=== PATIENT | male | born 1960 | race Caucasian/White ===

== ENCOUNTER → 2021-02-13 07:53 | Outpatient (REF) | payer OTHER, SELFPAY ==
--- NOTE | 2021-02-13 08:10 | ECG_ITS ---
Hook-up date: 2021-02-13 09:18:00 Duration: 47:59:00 Test Indications: ABNORMAL EKG Medications: 734425 QRS complexes 65 Ventricular ectopics which represent <1 % of total QRS comp. 971 Supraventricular ectopics which represent <1 % of total QRS comp. * Paced QRS complexs which represent % of total QRS comp. VENTRICULAR ECTOPY 65 Isolated 0 Bigeminal Cycles 0 Couplets 0 Runs 0 Beats in Runs * Beats LONGEST at * BPM at :: -- * Beats FASTEST at * BPM at :: -- SUPRAVENTRICULAR ECTOPY 951 Isolated 2 Couplets 4 Runs 16 Beats in Runs 7 Beats LONGEST at 119 BPM at 10:26:03 2021-02-13 3 Beats FASTEST at 129 BPM at 05:26:53 2021-02-14 HEART RATES 56 MIN at 03:39:56 2021-02-14 83 AVG 115 MAX at 11:06:17 2021-02-13 LONGEST RR 1.2640 secs at 05:00:30 2021-02-14 S-T LEVELS Channel 1 - 128 mm at 09:18:00 2021-02-13 - 128 mm at 09:18:00 2021-02-13 Channel 2 - 128 mm at 09:18:00 2021-02-13 - 128 mm at 09:18:00 2021-02-13 Channel 3 - 128 mm at 02:83:71 -- - 128 mm at 02:83:71 Underlying rhythm is sinus; Average ventricular rate 83/min; range 56-115/min; Occasional Premature atrial complexes (<1%); mostly isolated, few very brief runs; Rare Premature ventricular complexes ; Patient did not report any symptoms in the diary Referred By: Isiah Liu Overread By: VIKTORIA ROWLEY
--- NOTE | 2021-02-13 08:10 | CA_ITS ---
Transthoracic Echocardiogram Patient (Last, First, Middle): Jonah Lanier, Gender: Male Date of : 1960 Age: 61 Procedure Date: 02/13/2021 Procedure Type: Transthoracic Echocardiogram Location: OP Height: 193.04 cm Weight: 120.2 kg BSA: 2.50 m2 Heart Rate: bpm BP: 154 / 84 mmHg It Systems Analyst: [email or web address] Referring MD: Isiah Liu [facility] Symptoms: I10 - Essential (primary) hypertension Study Quality: Fair ECG Rhythm: Sinus Conclusions: - The left ventricular systolic function is normal. The visually estimated ejection fraction is between 60-65%. - No obvious valvular pathology seen on this study. Findings Left Ventricle Normal left ventricular cavity size. There is normal left ventricular wall thickness. The left ventricular systolic function is normal. The visually estimated ejection fraction is between 60-65%. There is no evidence of regional wall motion abnormalities. Diastolic function is normal for age. Right Ventricle Normal right ventricular cavity size and systolic function. Atria Both atria are normal in size. Aortic Valve There is a normal trileaflet aortic valve. There is no aortic valve stenosis. There is no aortic valve regurgitation. Mitral Valve The mitral valve appears normal. There is no mitral valve regurgitation. There is no mitral valve stenosis. Pulmonic Valve The pulmonic valve was not well visualized. Tricuspid Valve Normal tricuspid valve structure. There is trace tricuspid valve regurgitation. The pulmonary artery systolic pressure is normal. Great Vessels The asc aorta is normal in size. Venous The inferior vena cava is normal in size and collapses greater than 50% with inspiration. Pericardium/Pleural There is no evidence of pericardial effusion. Prior Study Comparison No prior study available for comparison. Recommendations, Care & Conclusions No obvious valvular pathology seen on this study. Measurements 2D Linear Measurements IVSd: 1.10 0.6-0.9/0.6-1.0 cm LVIDd: 5.20 3.9-5.3/4.2-5.9 cm LVIDd Index: 2.08 2.4-3.2/2.2-3.1 cm/m2 LVIDs: 3.43 2.0-3.6 cm LVPWd: 0.96 0.7-1.1 cm Ao Root: 3.20 2.1-3.5 cm LA Diam: 3.70 2.7-3.8/3.0-4.0 cm LAIDs Index: 1.48 1.5-2.3 cm/m2 LV Mass: 251.40 67-162/88-224 g LV Mass Index: 100.56 43-95/49-115 g/m2 LVOT Diam: 2.30 3.0+(-)1.3 cm 2D Systolic Function EF 4C: 60.50 >55% EF 2C: 55.50 >55% EF BiP: 57.50 >55% Mitral Valve MV Pk E: 0.84 MV PK A: 0.80 MV Decel Time: 238.00 E/A: 1.10 E'Lateral: 9.68 E'Medial: 9.36 E/E' Med: 9.00 E/E' Lat: 8.70 PHT: 70.00 MVA PHT: 3.14 Decel Kershaw: 3.53 Aortic Valve AoV Pk Gregorio: 1.46 AoV Mn Gregorio: 1.00 AoV VTI: 0.27 AoV Pk Grad: 9.00 Aov Mn Grad: 4.00 LIYAH Cont.VTI: 3.45 LVOT LVOT Pk Gregorio: 1.13 LVOT Mn Gregorio: 0.82 LVOT VTI: 0.23 LVOT Pk Grad: 5.00 LVOT Mn Grad: 3.00 LVOT Diam: 2.30 LVOT Area: 4.15 Diastolic Function MV Pk E: 0.84 MV Pk A: 0.80 E/A: 1.10 E'Medial: 9.36 E/E' Med: 9.00 E' Laterial: 9.68 E/E' Lat: 8.70 Right Ventricle TAPSE (mm): 2.07 Tricuspid Valve TR Pk Gregorio: 2.02 TR Pk Grad: 16.00 RA Press: 8.00 RVSP: 24.00 Great Vessels Aorta Ao Root-2D: 3.20 2.0-3.7 cm Ao Asc: 3.30 2.1-3.4 cm Ao Arch: 3.20 Updated in Other Vendor System with Status of Final Luis Felipe Ellis MD electronically signed on 02/15/2021 12:41:15 PM with status of Final
[2021-02-13 10:06] LABS: Glucose Urine UA NEG (NEG); Leukocyte Esterase Urine NEG (NEG); Nitrite Urine NEG (NEG); Specific Gravity - Urine 1.015 (1.005-1.025); Urine Blood NEG (NEG); Urine Ketones NEG (NEG); Urine Protein NEG (NEG-TRACE)
[2021-02-13 10:13] LABS: Appearance Urine CLEAR; Color Urine YELLOW
[2021-02-13 10:50] LABS: B Type Natriuretic Peptide 33 pg/mL (<100)
[2021-02-13 11:01] LABS: Creatinine Urine 132.52 mg/dL; Microalbum/Creatinine Ratio Ur 39.9 ug/mg cr
[2021-02-13 11:10] LABS: Alanine Aminotransferase 25 U/L (0-40); Albumin Level 4.2 g/dL (3.5-5.0); Alkaline Phosphatase 115 U/L (39-117); Anion Gap 14 (12-20); Aspartate Amino Transferase 17 U/L (5-37); Bilirubin Total 1.7 mg/dL (0.0-1.0); Blood Urea Nitrogen 36 mg/dL (9-16); Calcium 9.6 mg/dL (8.4-10.2); Carbon Dioxide 25 mmol/L (22-29); Chloride 102 mmol/L (96-108); Cholesterol 114 mg/dL; Estimated Glomerular Filt Rate 40; Glucose Fasting 140 mg/dL (60-99); HDL Cholesterol 46 mg/dL; LDL Cholesterol Calculated 54 mg/dl; Potassium 4.6 mmol/L (3.3-5.1); Sodium 136 mmol/L (135-145); Total Protein 7.8 g/dL (6.5-8.0); Triglycerides 72 mg/dL
[2021-02-13 11:11] LABS: Prostate Specific Antigen Scr 1.11 ng/mL (<0.05-4.0); TSH reflex Free T4 1.28 uIU/mL (0.32-4.0)
== END ==
LOC: HO.CARD 07:53
PROVIDERS: PCP Nurse Practitioner Family; Visit Provider Nurse Practitioner Family
DX: Z12.5 Encounter for screening for malignant neoplasm of prostate (principal); R94.31 Abnormal electrocardiogram [ECG] [EKG]; I10 Essential (primary) hypertension; R60.9 Edema, unspecified; E11.9 Type 2 diabetes mellitus without complications
CPT/HCPCS: 36415; 80053; 80061; 81003; 82043; 83880; 84153; 84443; 93225; 93226; 93306

== ENCOUNTER 2021-03-11 14:42 | Outpatient (REF) | payer OTHER, SELFPAY ==
--- NOTE | ~2021-03-11 | XR_ITS ---
EXAMINATION: XR ELBOW, RIGHT CLINICAL INFORMATION: Right elbow pain. COMPARISON: None TECHNIQUE: AP, lateral, and oblique views of the right elbow. FINDINGS: Oblique linear lucency deformity seen in the olecranon posteriorly. Concave deformity is seen at the triceps insertion. The proximal tibia is intact. Mild to moderate degenerative spurring is seen at the humeral epicondyles bilaterally, lateral greater than medial. There is no joint effusion. Mild soft tissue swelling is seen anteriorly and posteriorly. XR/XR elbow RT min 3V IMPRESSION: 1. Deformity in the posterior olecranon is of indeterminate age. While this could be secondary to old injury/degenerative changes, acute nondisplaced fracture cannot be excluded. Mild surrounding soft tissue swelling. Correlate with patient history and physical exam.
== END 2021-03-11 14:43 | disposition home or self-care (01) ==
LOC: HO.HMGCX 14:42
PROVIDERS: PCP Nurse Practitioner Family; Visit Provider Hospitalist
DX: M25.521 Pain in right elbow (principal)
CPT/HCPCS: 73080